=== PATIENT | female | born 1985 | race Caucasian/White ===

== ENCOUNTER 2020-06-01 21:13 | Emergency (ER) | payer OTHER ==
[~2020-06-01] VITALS: Ht 162.6 cm; Wt 149.7 kg
[2020-06-01] MEDS ORDERED: BUSP1TAB PO (21:29)
[2020-06-01] MEDS ORDERED: AIMO70IN2 SQ (21:29)
[2020-06-01] MEDS ORDERED: BRIN1TAB3 PO (21:29)
[2020-06-01] MEDS ORDERED: AMLO25TA PO (21:29)
[2020-06-01] MEDS ORDERED: LEVO50TA5 PO (21:29)
[2020-06-01] MEDS ORDERED: SUMA100T2 PO (21:29)
[2020-06-01] MEDS ORDERED: ZONI50CA PO (21:29)
[2020-06-01] MEDS ORDERED: AMIT50TA PO (21:29)
[2020-06-01] MEDS ORDERED: PANT40TA29 PO (21:29)
[2020-06-01] MEDS ORDERED: NS 1,000 ML IV ONE (22:30)
[2020-06-01] MEDS ORDERED: ONDANSETRON 4MG/2ML VIAL IV ONE (22:30)
[2020-06-01] MEDS: GASTROGRAFIN SOLUTION 30ML PO SCH ×2 (23:08→23:37)
[2020-06-01 23:52] LABS: BASO # 0.1 10^3/uL (0.0-0.2); EOS # 0.4 10^3/uL (0.0-0.5); EOS % 3.1 % (0.0-3.0); HEMATOCRIT 52.8 % (36.0-47.0); HEMOGLOBIN 16.8 g/dl (12.0-15.5); LYMPH # 3.8 10^3/uL (1.5-5.0); MEAN CORPUSCULAR HEMOGLOBIN 28.8 pg (27.0-33.0); MEAN CORPUSCULAR HGB CONC 31.8 g/dl (32.0-36.5); MEAN CORPUSCULAR VOLUME 90.6 fl (80.0-96.0); MONO # 1.3 10^3/uL (0.0-0.8); MONO % 10.9 % (0.0-5.0); NEUTROPHILS # 5.9 10^3/uL (1.5-8.5); NEUTROPHILS % 51.6 % (36.0-66.0); PLATELET COUNT, AUTOMATED 257 10^3/uL (150-450); RED BLOOD COUNT 5.83 10^6/uL (4.00-5.40); WHITE BLOOD COUNT 11.5 10^3/uL (4.0-10.0)
[2020-06-02 00:08] LABS: HCG, SERUM QUALITATIVE NEGATIVE (NEGATIVE)
[2020-06-02 00:21] LABS: ALBUMIN 3.8 GM/DL (3.2-5.2); ALT/SGPT 25 U/L (12-78); BILIRUBIN,DIRECT 0.1 MG/DL (0.0-0.2); BILIRUBIN,TOTAL 0.3 MG/DL (0.2-1.0); BLOOD UREA NITROGEN 15 MG/DL (7-18); CALCIUM LEVEL 9.4 MG/DL (8.5-10.1); CARBON DIOXIDE LEVEL 18 MEQ/L (21-32); CHLORIDE LEVEL 108 MEQ/L (98-107); CK-MB VALUE MASS < 1.0 NG/ML (<3.6); CPK CREATINE PHOSPHOKINASE 35 U/L (26-192); CREATININE FOR GFR 0.74 MG/DL (0.55-1.30); GLOMERULAR FILTRATION RATE > 60.0 (>60); GLUCOSE, FASTING 63 MG/DL (70-100); LIPASE 58 U/L (73-393); MB/CK RELATIVE INDEX 2.86 (< OR =4); SODIUM LEVEL 138 MEQ/L (136-145); TOTAL PROTEIN 7.7 GM/DL (6.4-8.2); TROPONIN I < 0.02 NG/ML (< 0.10)
[2020-06-02] MEDS ORDERED: ISOVUE-370 76% 100ML VIAL As Ordered ONE (00:31)
--- NOTE | 2020-06-02 00:52 | REPVR ---
PROCEDURE INFORMATION: Exam: CT Abdomen And Pelvis With Contrast Exam date and time: 06/01/2020 10:18 PM Age: 35 years old Clinical indication: Abdominal pain; Generalized; Prior surgery; Surgery date: <1 month; Surgery type: Gastric bypass; Additional info: Upper abd pain 3 weeks S/P gastric bypass TECHNIQUE: Imaging protocol: Computed tomography of the abdomen and pelvis with intravenous contrast. Radiation optimization: All CT scans at this facility use at least one of these dose optimization techniques: automated exposure control; mA and/or kV adjustment per patient size (includes targeted exams where dose is matched to clinical indication); or iterative reconstruction. Contrast material: ISO; Contrast volume: 100 ml; Contrast route: INTRAVENOUS (IV); Other contrast: Oral, ggraphin, 300; COMPARISON: No relevant prior studies available. FINDINGS: Limitations: Limited by patient's body habitus. Liver: Normal. No mass. Gallbladder and bile ducts: Cholecystectomy clips in the right upper quadrant. Pancreas: Normal. No ductal dilation. Spleen: Normal. No splenomegaly. Adrenals: Normal. No mass. Kidneys and ureters: 3.5 cm simple left renal cyst. Stomach and bowel: Jazmín-en-[id number] gastric bypass surgical changes in the left upper abdomen. Appendix: No evidence of appendicitis. Intraperitoneal space: Unremarkable. No free air. No significant fluid collection. Vasculature: Unremarkable. No abdominal aortic aneurysm. Lymph nodes: Unremarkable. No enlarged lymph nodes. Bladder: Unremarkable as visualized. Reproductive: Physiologic 1.8 cm right ovarian cyst. Bones/joints: Unremarkable. No acute fracture. Soft tissues: Unremarkable. IMPRESSION: No acute findings. COMMENTS: Consistent with the [employer]'s Incidental Findings Committee white paper (J Am Alicia Radiol 2018): Any incidental renal lesion less than 1 cm or classified as too small to characterize, or any incidental cystic renal lesion characterized as simple-appearing, is likely benign. No follow-up imaging is recommended for these lesions per consensus recommendations based on imaging criteria. Electronically signed by: Carlos Arechiga On 06/02/2020 00:52:20 AM
[2020-06-02 01:16] VITALS: BP 105/70
--- NOTE | 2020-06-02 08:02 | ECGEPIP ---
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
== END 2020-06-02 01:18 | disposition home or self-care (01) ==
LOC: M ED 21:13
DX: K21.9 Gastro-esophageal reflux disease without esophagitis (principal); E86.0 Dehydration; K58.9 Irritable bowel syndrome, unspecified; G43.909 Migraine, unspecified, not intractable, without status migrainosus; Z88.6 Allergy status to analgesic agent; Z88.8 Allergy status to other drugs, medicaments and biological substances; Z98.84 Bariatric surgery status
CPT/HCPCS: 36415; 74177; 80048; 80076; 81001; 82550; 82553; 83690; 84703; 85025; 93005; 96361; 96374; 99284; J2405; Q9963; Q9967

== ENCOUNTER → 2021-07-19 | Outpatient (CLI) | payer OTHER ==
[~2021-07-19] MED LIST: AIMO70IN2 SQ; AMIT50TA PO; AMLO25TA PO; BRIN1TAB3 PO; BUSP1TAB PO; LEVO50TA5 PO; PANT40TA29 PO; SUMA100T2 PO; ZONI50CA PO
== END ==
LOC: M LABSMTC 10:55
PROVIDERS: ATTEND Nurse Practitioner Family
DX: Z20.822 Contact with and (suspected) exposure to COVID-19 (principal)